=== PATIENT | female | born 1980 | race Native Hawaiian/Other Pacific Islander ===

== ENCOUNTER 2021-10-16 16:14 | Emergency (ER) | payer OTHER ==
[~2021-10-16] VITALS: Ht 162.6 cm; Wt 112.5 kg
[2021-10-16 18:26] VITALS: BP 126/72; TEMP 98.2
== END 2021-10-16 18:26 | disposition home or self-care (01) ==
LOC: ED 16:14
DX: L03.311 Cellulitis of abdominal wall (principal); Z98.890 Other specified postprocedural states
CPT/HCPCS: 87070; 87077; 87186; 87205; 99282